=== PATIENT | female | born 1980 | race Caucasian/White ===

== ENCOUNTER 2019-04-20 15:25 | Emergency (ER) | payer OTHER ==
[~2019-04-20] VITALS: Ht 167.6 cm; Wt 72.6 kg
[2019-04-20 15:32] VITALS: BP 121/81
[2019-04-20 15:33] VITALS: BP 121/81
--- NOTE | 2019-04-20 15:40 | NUR ---
Patient ambulated to bed 6. RN evaluating patient at bedside.
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
--- NOTE | 2019-04-20 16:20 | NUR ---
DR VALERIO AT BEDSIDE
[2019-04-20] MEDS ORDERED: KETOROLAC 60 MG/2 ML VIAL IM ONE (16:30)
--- NOTE | 2019-04-20 17:15 | NUR ---
Patient discharged BY DR VALERIO. Written and verbal after care instructions given and explained BY DR VALERIO. Patient alert, oriented and Ambulatory with steady gait. ID band removed. Rx of NAPROSYN given.
== END 2019-04-20 17:15 | disposition home or self-care (01) ==
LOC: MED 15:25
DX: S29.012A Strain of muscle and tendon of back wall of thorax, initial encounter (principal); Z88.0 Allergy status to penicillin; X58.XXXA Exposure to other specified factors, initial encounter; Y93.89 Activity, other specified; Y92.89 Other specified places as the place of occurrence of the external cause; Y99.8 Other external cause status
CPT/HCPCS: 96372; 99283; J1885